=== PATIENT | male | born 1975 | race Hispanic/Latino ===

== ENCOUNTER 2020-02-15 12:35 | Inpatient (IN) | payer SELFPAY ==
[2020-02-15] MEDS ORDERED: Fentanyl 100 MCG/2 ML VIAL ONE (12:40)
[2020-02-15] MEDS ORDERED: Midazolam HCl 2 mg/2 ml Vial ONE (12:42)
[2020-02-15] MEDS ORDERED: Adacel (T-DAP) 0.5 ML SYRINGE ONE (12:46)
[2020-02-15 12:53] LABS: #Eosinphils 0.2 thou/uL (0.0-0.7); #Lymphocytes 1.5 thou/uL (1.20-3.40); #Monocytes 0.4 thou/uL (0.11-0.59); #Neutrophils 8.4 thou/uL (1.40-6.50); %Basophils 0.3 % (0.0-1.0); %Lymphocytes 14.2 % (21.0-51.0); %Monocytes 4.2 % (0.0-10.0); %Neutrophils 79.3 % (42.0-75.0); Hemoglobin 15.9 g/dL (14.0-18.0); Mean Corpuscular HGB CONC 33.5 g/dL (32.0-36.0); Mean Corpuscular Hemoglobin 27.4 pg (27.0-31.0); Mean Corpuscular Volume 81.7 fL (78.0-98.0); Mean Platelet Volume 7.1 fL (7.4-10.4); Platelet Count 253 thou/uL (130-400); RBC Distribution Width 12.4 % (11.5-14.5); Red Blood Cell (RBC) Count 5.79 mill/uL (4.70-6.10); White Blood Cell (WBC) Count 10.5 thou/uL (4.8-10.8)
[2020-02-15] MEDS ORDERED: fentaNYL Citrate/PF 2,000 MCG in Sodium Chloride 0.9% 60 ML IV SCH (12:55)
--- NOTE | 2020-02-15 12:55 | RAD ---
Exam: Single view of the pelvis HISTORY: Pelvic and hip pain COMPARISON: None FINDINGS: A structure external to the patient overlies the right hip limiting evaluation of the right hip. A single view the pelvis shows no evidence of acute fracture or dislocation. No degenerative changes seen in either hip. IMPRESSION: No evidence of acute osseous abnormality on this limited exam.
[2020-02-15] MEDS ORDERED: Propofol 1,000 MG/100 ML VIAL IV ONE ×2 (13:02→13:13)
[2020-02-15 13:03] LABS: PTT 28.3 sec (22.9-36.1)
--- NOTE | 2020-02-15 13:03 | CT ---
CT CERVICAL SPINE NONCONTRAST: DATE: 02/15/2020 HISTORY: cervical trauma. 43-year-old male status post fall from ladder. FINDINGS: There are no jumped or perched facets. There is no evidence of acute fracture. The vertebral body hei ghts are maintained. There is no prevertebral soft tissue swelling. IMPRESSION: No evidence of acute fracture or acute traumatic subluxation.
[2020-02-15 13:08] LABS: Acetaminophen Less than 6.0 mcg/mL (10.0-30.0); Alcohol Less than 10 mg/dL (Less than 10); Salicylate Less than 8.0 mg/dL (15.0-30.0)
[2020-02-15 13:09] LABS: ALT (SGPT) 23 U/L (8-55); AST (SGOT) 30 U/L (5-34); Albumin 4.5 g/dL (3.5-5.0); Alkaline Phosphatase 131 U/L (40-110); Anion Gap 13 mmol/L (10-20); BUN (Urea Nitrogen) 7 mg/dL (8.9-20.6); Bilirubin, Total 0.5 mg/dL (0.2-1.2); Calc. Creatinine Clearance 0 mL/min (70-130); Calcium 8.9 mg/dL (7.8-10.44); Carbon Dioxide 20 mmol/L (22-29); Chloride 106 mmol/L (98-107); Estimated GFR-MDRD Greater than 90; Globulin 3.3 g/dL (2.4-3.5); Glucose 110 mg/dL (70-105); Lipase 31 U/L (8-78); Potassium 3.3 mmol/L (3.5-5.1); Protein, Total 7.8 g/dL (6.0-8.3); Sodium 136 mmol/L (136-145)
--- NOTE | 2020-02-15 13:15 | CT ---
CTA OF THE NECK WITH IV CONTRAST AND 3-D REFORMATTED IMAGING. INDICATION: Level 1 trauma; fall from ladder with neural changes COMPARISON: None FINDINGS: Right CCA: Patent. Right ICA: Patent. Right Subclavian: Patent. Right Vertebral Artery: Patent. Left CCA: Patent. Left ICA: Patent. Left Subclavian: Patent. Left Vertebral Artery: The left vertebral artery is slightly tortuous proximally. No definite hemody namically significant stenosis, occlusion or aneurysmal formation is demonstrated. Aerodigestive tract: Patient is intubated with associated gastric catheter placement. There is some gas and secretions seen within the posterior nasopharynx or oropharynx. Parotids/Submandibular/Thyroid glands: Normal. Lymph nodes: No pathologically enlarged lymph nodes. Lung Apices: Clear. Bones: Mild spondylosis of the cervical spine. No acute fracture is demonstrated. Incidentals: Visualized aspects of the intracranial contents appear within normal limits. IMPRESSION: 1. No hemodynamically significant stenosis, occlusion or aneurysmal formation.
--- NOTE | 2020-02-15 13:22 | CT ---
CHEST CT WITH CONTRAST ABDOMEN CT WITH CONTRAST PELVIC CT WITH CONTRAST LIMITED CT OF THE THORACIC AND LUMBAR SPINE: HISTORY: Fall from ladder with neurological changes. Correlation: None. COMPARISON: None. FINDINGS: Chest CT: Mediastinum: No mass, lymphadenopathy or hematoma. Aorta: The thoracic aorta and abdominal aorta have a normal caliber. No periaortic fat stranding. No dissection. Heart: Normal heart size. No significant pericardial fluid. Trachea and central bronchi: Patent. Endotracheal tube identified. Pleural spaces: No pneumothorax. Trace bilateral pleural effusions. Right lung: Dependent atelectatic change and/or pulmonary contusion. Left lung:Dependent atelectatic change and/or pulmonary contusion. Pneumothorax: None. Small focus of air in the anterior right chest appears to be confined to the soft tissues and just superficial to the pleural margin and anterior to the liver. Abdomen CT: Gallbladder: Unremarkable. Portal vein: Patent. Liver: Appropriate enhancement.. Spleen: Appropriate enhancement. Pancreas: Appropriate enhancement. Adrenal glands: Appropriate enhancement. Lymphadenopathy: No gastrohepatic, retrocrural or periportal lymphadenopathy. Kidneys: Symmetric enhancement. No obstructive uropathy. Hypodensities in the right renal cortex are too small to further characterize. Mesentery: No mass, lymphadenopathy, free air or free fluid. Alimentary canal: Limited evaluation due to the lack of oral contrast administration. No evidence of bowel obstruction. Normal ileocecal junction. Normal caliber retrocecal appendix. Occasional diverticulum. No diverticulitis. Soft tissues: Anterior abdominal wall appears to be intact. Pelvis CT: No pelvic mass, lymphadenopathy, free air or free fluid. Urinary bladder: Partially decompressed with Yepez catheterization. Presacral fat is preserved. Soft tissue hematoma and/or edema in the left gluteal subcutaneous fat Osseous structures: Intact sternum. Intact visualized clavicles and scapula. Nondisplaced posterior left 11th and 10th rib fractures. Intact bony pelvis. Sacral alae are preserved. Intact obturator rings. Contour of bilateral femoral h clara are maintained. No evidence of fracture. Limited CT of the thoracic and lumbar spine: Vertebral body heights are maintained. No fracture. IMPRESSION: 1. Bibasilar consolidation due to atelectasis or contusion. Small bilateral effusions. 2. Left 10th and 11th rib fractures. 3. No posttraumatic change in the abdomen or pelvis. Results of study discussed with Dr. Farrar 02/15/2020 at 1:21 PM Code CR Transcribed Date/Time: 02/15/2020 1:38 PM
[2020-02-15 13:30] LABS: Base Excess (BEa) -0.2 mEq/L (-2.0 to +3.0); CO2 Tension 37.8 mmHg (35.0-45.0); Calcium, Ionized (arterial) 1.17 mmol/L (1.12-1.30); Carboxyhemoglobin (COHb) 1.4 gm% (0.0-3.0); Hemoglobin (Hb) 15.3 g/dL (14.0-18.0); O2 Tension (PaO2), arterial 201.8 mmHg (80.0-100.0); Potassium - ABG Lab 3.09 mmol/L (3.70-5.30); pH, Arterial 7.42 (7.35-7.45)
[2020-02-15 13:34] LABS: Bacteria/HPF None Seen HPF (None Seen); Bilirubin Negative (Negative); Blood, Urine 1+ (Negative); Clarity Clear (Clear); Glucose, Urine (Dipstick) Normal (Negative); Leukocyte Negative Leu/uL (Negative); Nitrite Negative (Negative); Protein, Urine (Dipstick) 50 mg/dL (Neg-Trace); Squamous Epithelial 0-3 HPF (0-3); Urobilinogen Normal mg/dL (Less than 2); WBC/HPF 0-3 HPF (0-3)
[2020-02-15 13:37] LABS: Puncture Site RRA
[2020-02-15 13:38] LABS: Amphetamine Not Detected (NotDetected); Barbiturates Screen Not Detected (NotDetected); Benzodiazepine Screen Not Detected (NotDetected); Cocaine Metabolite Screen Not Detected (NotDetected); Medtox Control Line Valid? VALID (VALID); Medtox Reader # READER 1; Methadone Not Detected (NotDetected); Methamphetamine Not Detected (NotDetected); Opiate Screen Not Detected (NotDetected); Oxycodone Screen Not Detected (NotDetected); Phencyclidine (PCP) Not Detected (NotDetected); THC/Cannabinoid Screen Not Detected (NotDetected); Tricyclic Screen Not Detected (NotDetected)
--- NOTE | 2020-02-15 14:08 | CT ---
CT BRAIN WITHOUT CONTRAST: HISTORY: Level I trauma. Fall from ladder with neural changes. FINDINGS: No evidence of acute infarct, hemorrhage, midline shift, or abnormal extraaxial fluid collections is seen. The ventricular size is normal and the basilar cisterns patent. The bony calvarium is intact. There is mucosal disease in the paranasal sinuses. IMPRESSION: No CT evidence of acute intracranial process. Discussed over the telephone with ER physician, Dr. Darvin Farrar, at 12:59 p.m. CODE CR
[2020-02-15] MEDS ORDERED: Dextrose 5% in Water 1,000 ML IV PRN (14:27)
[2020-02-15] MEDS ORDERED: Sodium Chloride 0.9% 1,000 ML IV SCH (14:27)
[2020-02-15] MEDS ORDERED: Dextrose 50% Abboject 50 ML SYRINGE SLOW IVP PRN (14:27)
[2020-02-15] MEDS ORDERED: Ondansetron PF 4 MG/2 ML Vial IVP PRN (14:27)
[2020-02-15] MEDS ORDERED: Propofol 500 MG/50 ML VIAL IV PRN (14:27)
[2020-02-15] MEDS ORDERED: Ondansetron ODT 4 MG TAB PO PRN (14:27)
[2020-02-15] MEDS ORDERED: hydrALAZINE 20 MG/ML VIAL SLOW IVP PRN (14:27)
[2020-02-15 15:11] VITALS: BMI 24.3
[2020-02-15] MEDS ORDERED: Iopamidol-370 76% 500 ML 1 ML ONE (15:31)
--- NOTE | 2020-02-15 15:32 | RAD ---
EXAM: Single view of the chest HISTORY: Fall with chest trauma COMPARISON: None FINDINGS: Single view of the chest shows a normal sized cardiomediastinal silhouette. An endotrachea l tube is seen with its tip between the clavicles. There is no evidence of consolidation, mass, or pleural effusion. The bones are unremarkable. IMPRESSION: No evidence of acute cardiopulmonary disease
[2020-02-15] MEDS ORDERED: Acetaminophen 500 MG TAB PO SCH (16:00)
[2020-02-15] MEDS ORDERED: Ibuprofen 800 MG TAB PO SCH (16:00)
[2020-02-15] MEDS: Acetaminophen 325 MG TAB PO SCH ×2 (17:23→23:59)
--- NOTE | 2020-02-15 19:46 | HP ---
Patient is otherwise known as Anjum. HISTORY OF PRESENT ILLNESS: This is an approximately 43-year-old man, identities unknown at this time. Apparently, patient fell from 15-foot height off a ladder down to a solid surface. He suffered loss of consciousness. He was reportedly combative at the scene. Initially, he was unable to move his upper extremities, but was moving lower extremities briskly. Due to waxing mental status, patient was electively intubated by responding to an ambulance crew. He received some rocuronium, ketamine, and fentanyl for intubation. [facility] was transported [facility] in [place], [place]. Patient arrived with a cervical spine, immobilized in a C-collar, remainder of his spinal currently immobilized in a spine board. He was obviously pharmacologically paralyzed. Elissa Coma Scale at the time was notably 3. The patient eventually was able to move the lower extremities as the medications wore off. PAST MEDICAL HISTORY: Unknown. PAST SURGICAL HISTORY: Unknown. SOCIAL HISTORY: Unknown. FAMILY HISTORY: Unknown. CURRENT MEDICATIONS: Unknown. ALLERGIES: UNKNOWN. REVIEW OF SYSTEMS: Could not be obtained as patient is intubated on mechanical ventilator support, having received also some sedatives and paralytics. PHYSICAL EXAMINATION: GENERAL: This reveals approximately 43-year-old normally developed man, who is sedated on mechanical ventilator support, but appears to be in no acute distress. VITAL SIGNS: Initial vital signs include blood pressure 239/107, pulse 66, respiratory rate is 20, temperature 98.8 degrees Fahrenheit, and oxygen saturation 100% on mechanical ventilator support. HEENT EXAMINATION: Reveals normocephalic and atraumatic. Both pupils are equal and reactive to light at 2 mm bilaterally. Midface is stable. No gross deformities or step-offs present. Nares are patent, no discharge. Tympanic membrane visualized, no hemotympanum present. NECK: Cervical spine immobilized in a C-collar and maintained in neutral position during my examination. Neck was without any bony step-offs. CHEST: Chest wall is stable. No gross deformities or step-offs are present. HEART: Reveals regular rate and rhythm, although patient exhibited intermittent episodes of bradycardia with heart rate as low as 47 beats per minute. This, however, was hemodynamically insignificant as blood pressure maintained above 120 mmHg. LUNGS: Clear to auscultation bilaterally. Breathing, regular and nonlabored. ABDOMEN: Soft, nontender, and nondistended. Liver and spleen nonpalpable below costal margins. PELVIS: Stable. No gross deformities or step-offs present. GENITOURINARY: Reveals bilateral descended testicles with normal male genitalia. There is no blood in the urethral meatus. No priapism noted. There was no ecchymosis or hematoma of the scrotum or perineum present. EXTREMITIES: Reveal 2+ radial and pedal pulses bilaterally. No ankle edema is present. MUSCULOSKELETAL: Could not be adequately evaluated as patient is sedated and pharmacologically paralyzed. When log-rolled, thoracic and lumbar spine were palpated free of any bony step-offs present. Patient does have some soft tissue abrasions in the inferior lumbar spine as well as the left lateral flank. This will be about the level of the iliac crest. No underlying soft tissue hematoma is present. No active bleeding is present. PERTINENT LABORATORY FINDINGS: Today included CBC with 10,500 white blood cells, hemoglobin and hematocrit 15.9 and 47.3 respectively. Platelet count is 253,000. PTT and INR normal at 28.3 seconds and 1.0 respectively. Metabolic profile; sodium 136, potassium 3.3, chloride is 106, bicarb is 20, BUN 7, creatinine 0.72, glucose is 110, total bilirubin 0.5, AST and ALT normal at 30 and 23 respectively. Alkaline phosphatase is marginally elevated at 131. Serum lipase is normal at 31. Toxicology screen is obtained. Alcohol is less than 10. The remainder of the toxicology screen is pending at the time of my dictation. A 12-lead EKG reveals sinus bradycardia. No ST changes present. I have reviewed all radiographic studies to include an unremarkable brain and cervical spine CT scan. CT angiography of the neck is also unremarkable for any vascular injuries. CT scan of the chest is remarkable for right-sided ribs 10 and 11 fractures with underlying right pulmonary contusion. No pneumothorax or hemothorax is present. No other acute intrathoracic pathology is evident. CT scan of the abdomen and pelvis is unremarkable for any acute intraabdominal pathology. CT scan of the thoracic and lumbar spine revealed no fractures or dislocation. IMPRESSIONS: 1. Status post fall from approximately 15-foot height. 2. Acute traumatic brain injury with cerebral concussion. 3. Probable acute spinal cord concussion, neurologically improving as patient is now able to move all extremities, though not following commands at the moment. 4. Acute hypokalemia. 5. Acute posttraumatic respiratory failure. PLAN: 1. Finding no significant traumatic injuries to account for this patient's current neurological examination, we will maintain the patient on mechanical ventilator support and wean sedatives to off as we perform serial examinations. 2. Patient will be extubated once he is hemodynamically and neurologically stable. 3. Correct abnormal electrolytes. 4. Given the intermittent episodes of sinus bradycardia and no apparent reason for the fall, we will obtain a transthoracic echocardiography to evaluate cardiac chambers, rule out wall motion abnormality and evaluate cardiac function. Above findings and plan will be discussed with the patient's family once contact is established. Total critical care time is 55 minutes. Job ID: [id number]
[2020-02-15] MEDS: Famotidine 20 MG TAB PO SCH (21:08)
[2020-02-15] MEDS: Ibuprofen 600 MG TAB PO SCH (21:09)
[2020-02-16] MEDS: Ibuprofen 600 MG TAB PO SCH ×2 (04:15→12:40)
[2020-02-16] MEDS: Acetaminophen 325 MG TAB PO SCH ×2 (05:25→12:40)
[2020-02-16 06:01] LABS: #Eosinphils 0.1 thou/uL (0.0-0.7); #Lymphocytes 1.9 thou/uL (1.20-3.40); #Monocytes 0.6 thou/uL (0.11-0.59); #Neutrophils 8.5 thou/uL (1.40-6.50); %Basophils 0.2 % (0.0-1.0); %Eosinophils 1.2 % (0.0-10.0); %Lymphocytes 16.8 % (21.0-51.0); %Monocytes 5.7 % (0.0-10.0); %Neutrophils 76.2 % (42.0-75.0); Hemoglobin 15.4 g/dL (14.0-18.0); Mean Corpuscular HGB CONC 32.2 g/dL (32.0-36.0); Mean Corpuscular Hemoglobin 26.2 pg (27.0-31.0); Mean Corpuscular Volume 81.3 fL (78.0-98.0); Mean Platelet Volume 7.4 fL (7.4-10.4); Platelet Count 265 thou/uL (130-400); RBC Distribution Width 12.6 % (11.5-14.5); Red Blood Cell (RBC) Count 5.86 mill/uL (4.70-6.10); White Blood Cell (WBC) Count 11.1 thou/uL (4.8-10.8)
[2020-02-16 06:19] LABS: Anion Gap 13 mmol/L (10-20); BUN (Urea Nitrogen) 5 mg/dL (8.9-20.6); Calc. Creatinine Clearance 118 mL/min (70-130); Calcium 9.1 mg/dL (7.8-10.44); Carbon Dioxide 24 mmol/L (22-29); Chloride 107 mmol/L (98-107); Estimated GFR-MDRD Greater than 90; Glucose 107 mg/dL (70-105); Potassium 3.3 mmol/L (3.5-5.1); Sodium 141 mmol/L (136-145)
[2020-02-16 07:19] LABS: Phosphorus 2.6 mg/dL (2.3-4.7)
[2020-02-16] MEDS ORDERED: Potassium Phosphate 30 MMOL in Sodium Chloride 0.9% 500 ML IVPB SCH (07:30)
--- NOTE | 2020-02-16 07:44 | RAD ---
CHEST 1 VIEW: INDICATION: Followup examination. COMPARISON: Prior exam dated 02/15/2020. FINDINGS: No acute airspace opacity or pleural effusion is evident. Heart size is accentuated by exam techniqu e. No pleural effusion or pneumothorax is evident. No acute osseous abnormality is noted. IMPRESSION: No acute cardiopulmonary abnormality. POS: BH
[2020-02-16] MEDS: Famotidine 20 MG TAB PO SCH (08:24)
[2020-02-16 11:51] VITALS: BP 158/89; TEMP 98.5
--- NOTE | 2020-02-17 14:06 | DIS ---
DATE OF ADMISSION: 02/15/2020 DATE OF DISCHARGE: 02/16/2020 ADMISSION DIAGNOSES: 1. Status post fall from 15 feet high. 2. Acute traumatic brain injury with cerebral concussion. 3. Probably acute spinal cord concussion. 4. Acute posttraumatic respiratory failure. DISCHARGE DIAGNOSES: 1. Status post fall from approximately 15 feet high. 2. Acute traumatic brain injury with cerebral concussion, improved. 3. Probably acute spinal cord concussion, neurological intact. 4. Acute hypokalemia, resolved. 5. Acute posttraumatic respiratory failure, resolved. CONSULTING PHYSICIAN: None. PROCEDURE: None. HOSPITAL COURSE: Mr. Doran is a 44-year-old male, status post fall from 15 feet high. The patient presents with upper extremity weakness, combative, altered mental status, in which he was intubated by EMS. However, while admitted to the hospital, the patient neurological deficits improved. Mental status become normal. Vital signs normal. The patient was extubated at the same day. The patient tolerated the extubation well. Neurological deficits improved. No signs of respiratory distress. Vital signs stable. The patient able to tolerate with regular diet. He is able to work with physical therapy/occupation therapy. The patient is set to be discharged home. PHYSICAL EXAMINATION: GENERAL: Currently, the patient lying in bed comfortable with no acute respiratory distress. VITAL SIGNS: Temperature 98, heart rate is 80, respiratory rate 18, O2 saturation 98% on room air, and blood pressure 150/70. LUNGS: Clear bilaterally. HEART: Regular rate and rhythm. ABDOMEN: Soft and nondistended. EXTREMITIES: Neurovascularly intact x4. NEUROLOGIC: No focal neurology deficits. DISCHARGE DISPOSITION: Home. DISCHARGE CONDITION: Good. DISCHARGE INSTRUCTIONS: The patient is to take medication as directed. The patient is to encourage walking regularly. The patient is instructed to go to the doctor or emergency room for evaluation if he experience any signs of severe concussion, including headache, nausea, vomiting, or shortness of breath. Job ID: [id number]
== END 2020-02-16 16:30 | disposition home or self-care (01) | DRG 88 ==
LOC: EDSEX 12:35 → ERS 12:35 → EDBD 13:11 → CCU 13:11 → SJJU 21:01
PROVIDERS: ADMIT Surgery; ATTEND Surgery
DX: S06.0X9A Concussion with loss of consciousness of unspecified duration, initial encounter (principal); J96.00 Acute respiratory failure, unspecified whether with hypoxia or hypercapnia; S14.0XXA Concussion and edema of cervical spinal cord, initial encounter; R00.1 Bradycardia, unspecified; R41.82 Altered mental status, unspecified; W11.XXXA Fall on and from ladder, initial encounter; E87.6 Hypokalemia; Z89.022 Acquired absence of left finger(s)
CPT/HCPCS: 36415; 36416; 70450; 70498; 71045; 71260; 72125; 72170; 74177; 80048; 80053; 80306; 80307; 81003; 81015; 82805; 83690; 83735; 84100; 84484; 85025; 85610; 85730; 86850; 86900; 86901; 90715; 93005; 94002; 94003; 94640; G0390; J0690; J2250; J2704; J3010; J3490; J7030; J7620; Q9967